=== PATIENT | male | born 2000 | race Caucasian/White ===

== ENCOUNTER 2025-01-18 12:44 | Inpatient (IN) | payer MEDICAID ==
[~2025-01-18] VITALS: Ht 165.1 cm; Wt 73.5 kg
[2025-01-18 12:58] LABS: COVID AG,FIA SOURCE NASAL SWAB
[2025-01-18 13:18] LABS: SARS-COV2 (COVID) ANTIGEN,FIA Negative (Negative)
[2025-01-18 13:24] LABS: PLATELET COUNT (AUTO) 190 K/uL (150-450); RED BLOOD CELL COUNT(AUTO) 5.42 MIL/uL (4.50-5.90); RED CELL DISTRIBUTION WIDTH 14.2 % (11.5-14.5); WHITE BLOOD COUNT (AUTO) 9.7 K/uL (4.5-11.0)
[2025-01-18 13:26] LABS: RBC MORPHOLOGY COMMENT NORMAL RBC MORPH
[2025-01-18] MEDS: SODIUM CHLORIDE 0.9% 500 ML IRRIG SOLUTION BOTTLE IRRIG ONE (14:10)
[2025-01-18] MEDS: PERTUSS(ACELL),DIPH,TET/PF 0.5 ML SYRINGE [ADULT] IM. ONE (14:12)
[2025-01-18 14:15] LABS: APPEARANCE,URINE CLEAR (CLEAR); GLUCOSE, URINE (UA) NEGATIVE (NEGATIVE); LEUKOCYTE ESTERASE ,URINE NEGATIVE (NEGATIVE); NITRATE,URINE NEGATIVE (NEGATIVE); OCCULT BLOOD,URINE NEGATIVE (NEGATIVE); PH,URINE DRUG SCREEN 6.0 (5.0-8.0); SPECIFIC GRAVITIY, URINE 1.030 (1.003-1.030)
[2025-01-18] MEDS: CALCIUM CARBONATE 500 MG CHEWABLE TABLET CHEW ONE (14:19)
[2025-01-18 14:21] LABS: ALCOHOL, URINE DRUG SCREEN NEGATIVE (NEGATIVE); AMPHET/METH SCREEN,URINE NEGATIVE (NEGATIVE); BARBITURATE SCREEN, URINE NEGATIVE (NEGATIVE); CANNABINOID SCREEN,URINE NEGATIVE (NEGATIVE); COCAINE SCREEN,URINE NEGATIVE (NEGATIVE); METHADONE SCREEN, URINE NEGATIVE (NEGATIVE)
[2025-01-18 14:27] LABS: CALCIUM, TOTAL 8.9 mg/dL (8.8-10.5); CREATININE 0.94 mg/dL (0.60-1.30); GLOMERULAR FILTR. RATE CALC > 60 mL/min (>60); GLUCOSE,RANDOM 107 mg/dL (70-110); SODIUM SERUM 140 mmol/L (136-145); UREA NITROGEN, BLOOD 11 mg/dL (7-18)
[2025-01-18] MEDS ORDERED: ZOLPIDEM TARTRATE 10 MG TABLET PO PRN (14:45)
[2025-01-18] MEDS ORDERED: DIVA-153 PO (15:54)
[2025-01-18] MEDS ORDERED: [UNRECOGNIZED DRUG - CODE] IV (15:56)
[2025-01-18 18:19] VITALS: O2SAT 100
[2025-01-18] MEDS ORDERED: INFLUENZA VIRUS VACCINE TVS (6MO+) 2025-26/PF 45 MCG/0.5 ML SYRINGE IM. ONE (23:30)
[2025-01-18 23:37] VITALS: BP 120/96; PULSE 82; RESP 16; TEMP 98.1; O2SAT 100
[2025-01-19 08:36] VITALS: BP 117/81; PULSE 81; RESP 18; TEMP 98.1; O2SAT 100
[2025-01-19] MEDS ORDERED: BACITRACIN 28 GM OINTMENT TP PRN (09:30)
[2025-01-19] MEDS ORDERED: MAG HYDROX/ALUMINUM HYD/SIMETH ES 30 ML SUSPENSION UDCUP PO PRN (09:30)
[2025-01-19] MEDS ORDERED: PETROLATUM,WHITE 28 GM JELLY TP PRN (09:30)
[2025-01-19] MEDS ORDERED: OMEPRAZOLE 20 MG CAPSULE PO PRN (09:30)
[2025-01-19] MEDS ORDERED: BENZOCAINE/MENTHOL [CEPACOL] LOZENGE PO PRN (09:30)
[2025-01-19] MEDS ORDERED: ONDANSETRON 4 MG TABLET PO PRN (09:30)
[2025-01-19] MEDS ORDERED: IBUPROFEN 600 MG TABLET PO PRN (09:30)
[2025-01-19] MEDS ORDERED: LOPERAMIDE HCL 2 MG CAPSULE PO PRN (09:30)
[2025-01-19] MEDS ORDERED: MAGNESIUM HYDROXIDE SUSPENSION 30 ML UDCUP PO PRN (09:30)
[2025-01-19] MEDS ORDERED: ALBUTEROL SULFATE HFA 90 MCG/PUFF 8 GM INHALER IH PRN (09:30)
[2025-01-19] MEDS ORDERED: DOCUSATE SODIUM 100 MG CAPSULE PO PRN (09:30)
[2025-01-19] MEDS ORDERED: ACETAMINOPHEN 325 MG TABLET PO PRN (09:30)
[2025-01-19 20:50] VITALS: BP 115/79; PULSE 80; RESP 16; TEMP 98; O2SAT 98
[2025-01-20 08:19] VITALS: BP 111/61; PULSE 69; RESP 17; TEMP 99.5; O2SAT 97
[2025-01-20] MEDS: DIVALPROEX SODIUM 500 MG DR TABLET PO SCH (09:57)
[2025-01-20] MEDS: LITHIUM CARBONATE 300 MG CAPSULE PO SCH (09:57)
[2025-01-20 20:41] VITALS: BP 106/69; PULSE 75; RESP 17; TEMP 98.6; O2SAT 98
[2025-01-21 08:25] VITALS: BP 117/70; PULSE 75; RESP 17; TEMP 99.1; O2SAT 98
[2025-01-21] MEDS ORDERED: LITH300C3 PO (11:41)
[2025-01-21] MEDS ORDERED: DIVA-112 PO (11:43)
[2025-01-21] MEDS ORDERED: ARIP15TA27 PO (11:46)
== END 2025-01-21 13:30 | disposition home or self-care (01) | DRG 761 ==
LOC: EMS 12:46 → B2S 19:52
PROVIDERS: ADMIT Psychiatry & Neurology Psychiatry; ATTEND Psychiatry & Neurology Psychiatry
DX: F25.9 Schizoaffective disorder, unspecified (principal); R45.850 Homicidal ideations; F32.A Depression, unspecified; F41.9 Anxiety disorder, unspecified; G47.00 Insomnia, unspecified; Z20.822 Contact with and (suspected) exposure to COVID-19; K59.00 Constipation, unspecified; F84.0 Autistic disorder; F90.9 Attention-deficit hyperactivity disorder, unspecified type; X78.1XXA Intentional self-harm by knife, initial encounter; S00.531A Contusion of lip, initial encounter; S00.511A Abrasion of lip, initial encounter; Y93.89 Activity, other specified; Y92.89 Other specified places as the place of occurrence of the external cause; Y99.8 Other external cause status
CPT/HCPCS: 80048; 80164; 80307; 81003; 85025; 90715; 99285; G0480